=== PATIENT | male | born 1935 | race Caucasian/White ===

== ENCOUNTER → 2018-05-04 | Outpatient (CLI) | payer OTHER ==
[~2018-05-04] MED LIST: BUDE10.2 INH; BUDE90AE INH; CARV3.1212 PO; CARV3.122 PO; CARV6.2512 PO; DOXY100C15 PO; FURO-92 PO; FURO-93 PO; HYDR-3237 PO; LOSA25TA2 PO; LOSA25TA5 PO; LOSA50TA6 PO; METO25TA91 PO; POTA20TA14 PO; REGADENOSON 0.4 MG/5 ML SYRINGE ONE; RIVA20TA PO; SPIR25TA PO; SPIR25TA3 PO
== END | disposition home or self-care (01) ==
LOC: RAD 06:58
PROVIDERS: ATTEND Internal Medicine Cardiovascular Disease
DX: I25.9 Chronic ischemic heart disease, unspecified (principal); I21.19 ST elevation (STEMI) myocardial infarction involving other coronary artery of inferior wall
CPT/HCPCS: 78452; 93017; A9502; C9898; J2785

== ENCOUNTER 2018-09-01 16:15 | Observation (INO) | payer OTHER ==
[~2018-09-01] VITALS: Ht 185.4 cm; Wt 85.2 kg
[~2018-09-01 16:15] MED LIST changes: -LOSA25TA5 PO; +LOSA25TA6 PO; -LOSA50TA6 PO; +LOSA50TA7 PO; -REGADENOSON 0.4 MG/5 ML SYRINGE ONE; -SPIR25TA3 PO; +SPIR25TA5 PO
[2018-09-01 16:59] LABS: BASOPHILS # (AUTO) 0.08 x10^3/uL (0-0.1); BASOPHILS % (AUTO) 1 % (0-1); EOSINOPHILS # (AUTO) 0.24 x10^3/uL (0-0.4); EOSINOPHILS % (AUTO) 2 % (1-7); LYMPHOCYTES # (AUTO) 1.37 x10^3/uL (1-3.4); LYMPHOCYTES % (AUTO) 13 % (22-44); MD NO; MEAN CORPUSCULAR HEMOGLOBIN 32.5 pg (27.5-34.5); MEAN CORPUSCULAR HGB CONC 33.4 g/dL (33.2-36.2); MEAN CORPUSCULAR VOLUME 97.4 fL (81-97); MEAN PLATELET VOLUME 8.6 fL (7.4-10.4); MONOCYTES # (AUTO) 0.88 x10^3/uL (0.2-0.8); MONOCYTES % (AUTO) 8 % (2-9); NEUTROPHILS # (AUTO) 7.88 x10^3/uL (1.8-6.8); NEUTROPHILS % (AUTO) 75 % (42-75); PLATELET COUNT 186 x10^3/uL (130-400); RED CELL DISTRIBUTION WIDTH 13.5 % (9.4-14.8)
[2018-09-01 17:05] LABS: INTERNATIONAL NORMALIZED RATIO 1.09 (0.93-1.1); PROTHROMBIN TIME 11.2 Seconds (9.6-11.5)
[2018-09-01 17:09] LABS: ALANINE AMINOTRANSFERASE 29 U/L (12-78); ALBUMIN 4.4 g/dL (3.4-5.0); ANION GAP 8 mmol/L (5-15); CALCIUM 9.2 mg/dL (8.5-10.1); CHLORIDE 106 mmol/L (98-107)
[2018-09-01 17:13] LABS: ALKALINE PHOSPHATASE 113 U/L (45-117); TOTAL PROTEIN 8.3 g/dL (6.4-8.2); TROPONIN I 0.026 ng/mL (0.000-0.045)
[2018-09-01] MEDS ORDERED: POTASSIUM CHLORIDE (17:57)
[2018-09-01] MEDS ORDERED: FUROSEMIDE 40 MG/4 ML IV ONE (18:00)
[2018-09-01] MEDS ORDERED: FUROSEMIDE 40 MG/4 ML ONE (18:20)
[2018-09-01] MEDS ORDERED: SODIUM CHLORIDE FLUSH 10ML SYR IVF PRN (18:30)
[2018-09-01] MEDS ORDERED: POTA10CA PO (19:28)
[2018-09-01] MEDS ORDERED: APIX5TAB PO (19:28)
[2018-09-01 19:29] VITALS: BP 147/92
[2018-09-01] MEDS ORDERED: hydrALAzine 20 MG/ML, 1ML IVPush PRN (19:30)
[2018-09-01] MEDS ORDERED: ACETAMINOPHEN 325 MG TABLET PO PRN (19:30)
[2018-09-01] MEDS ORDERED: DOCUSATE 100 MG CAPSULE PO PRN (19:30)
[2018-09-01] MEDS ORDERED: ONDANSETRON ODT 4 MG PO PRN (19:30)
[2018-09-01] MEDS ORDERED: TEMAZEPAM 15 MG CAPSULE PO PRN (19:30)
[2018-09-01] MEDS ORDERED: APIXABAN 5 MG TABLET ONE (20:00)
[2018-09-01] MEDS ORDERED: APIXABAN 5 MG TABLET PO SCH ×2 (21:00)
[2018-09-01 21:32] VITALS: BP 140/81
[2018-09-01 22:30] LABS: TROPONIN I 0.029 ng/mL (0.000-0.045)
[2018-09-02 01:05] VITALS: BP 140/82
[2018-09-02 04:55] LABS: ANION GAP 7 mmol/L (5-15); CALCIUM 9.1 mg/dL (8.5-10.1); CHLORIDE 107 mmol/L (98-107); CREATININE 1.22 mg/dL (0.7-1.3)
[2018-09-02 04:59] LABS: TROPONIN I 0.026 ng/mL (0.000-0.045)
[2018-09-02 07:41] VITALS: BP 130/80
[2018-09-02] MEDS ORDERED: POTASSIUM CHLORIDE 10 MEQ TABLET.ER PO SCH (08:00)
[2018-09-02] MEDS ORDERED: RIVAROXABAN 20 MG TABLET PO SCH (09:00)
[2018-09-02] MEDS ORDERED: METOPROLOL SUCCINATE 50 MG TAB.ER.24H PO SCH (09:00)
[2018-09-02] MEDS ORDERED: FUROSEMIDE 40 MG/4 ML IV SCH (09:00)
[2018-09-02] MEDS ORDERED: POTASSIUM CHLORIDE 10 MEQ TABLET.ER PO ONE (10:30)
[2018-09-02] MEDS ORDERED: POTASSIUM CHLORIDE 10 MEQ TABLET.ER ONE (10:33)
[2018-09-02] MEDS: APIXABAN 5 MG TABLET PO SCH ×2 (10:46→20:05)
[2018-09-02] MEDS: METOPROLOL SUCCINATE 25 MG TAB.ER.24H PO SCH (10:47)
[2018-09-02] MEDS: LOSARTAN 25MG TABLET PO SCH (10:48)
[2018-09-02] MEDS ORDERED: SPIRONOLACTONE 25 MG TABLET PO ONE (13:00)
[2018-09-02] MEDS ORDERED: SPIRONOLACTONE 25 MG TABLET PO SCH (13:00)
[2018-09-02 13:14] VITALS: BP 106/66
[2018-09-02 20:00] VITALS: BP 127/76
[2018-09-02] MEDS: FUROSEMIDE 40 MG/4 ML IV SCH (20:06)
[2018-09-03 03:12] VITALS: BP 124/69
[2018-09-03 05:21] LABS: ANION GAP 9 mmol/L (5-15); CALCIUM 9.3 mg/dL (8.5-10.1); CHLORIDE 108 mmol/L (98-107); CHOLESTEROL, TOTAL 163 mg/dL (140-239); CREATININE 1.26 mg/dL (0.7-1.3); TRIGLYCERIDES 83 mg/dL (50-200); VLDL CHOLESTEROL 17 mg/dL (0-25)
[2018-09-03 05:25] LABS: CHOL/HDL RATIO 3.3; HDL CHOL % 30 % (26-37); HDL CHOLESTEROL (DIRECT) 49 mg/dL (40-60); LDL CHOLESTEROL,CALCULATED 97 mg/dL (54-169)
[2018-09-03 07:21] VITALS: BP 116/77
[2018-09-03] MEDS ORDERED: POTASSIUM CHLORIDE 20 MEQ TAB.ER.PRT PO SCH (08:00)
[2018-09-03] MEDS: FUROSEMIDE 40 MG/4 ML IV SCH (08:14)
[2018-09-03] MEDS: LOSARTAN 25MG TABLET PO SCH (08:14)
[2018-09-03] MEDS: APIXABAN 5 MG TABLET PO SCH (08:14)
[2018-09-03] MEDS: METOPROLOL SUCCINATE 25 MG TAB.ER.24H PO SCH (08:14)
[2018-09-03] MEDS ORDERED: POTA10CA PO (08:20)
[2018-09-03] MEDS ORDERED: FURO-93 PO (08:20)
[2018-09-03] MEDS ORDERED: ATOR40TA78 PO (08:20)
[2018-09-03] MEDS ORDERED: SPIRONOLACTONE 25 MG TABLET PO SCH (09:00)
[2018-09-03] MEDS ORDERED: SPIR25TA PO (09:20)
== END 2018-09-03 10:26 | disposition home or self-care (01) ==
LOC: ED 17:35 → EDIP 18:09 → INTOOBSV 18:09 → 5SO 19:06
PROVIDERS: ADMIT Hospitalist; ATTEND Hospitalist
DX: I25.118 Atherosclerotic heart disease of native coronary artery with other forms of angina pectoris (principal); N17.0 Acute kidney failure with tubular necrosis; I50.23 Acute on chronic systolic (congestive) heart failure; D68.69 Other thrombophilia; I11.0 Hypertensive heart disease with heart failure; I48.2 Chronic atrial fibrillation; E78.5 Hyperlipidemia, unspecified; Z95.0 Presence of cardiac pacemaker; Z82.49 Family history of ischemic heart disease and other diseases of the circulatory system; Z80.9 Family history of malignant neoplasm, unspecified; Z88.8 Allergy status to other drugs, medicaments and biological substances; Z79.899 Other long term (current) drug therapy; Z79.01 Long term (current) use of anticoagulants
CPT/HCPCS: 36415; 71046; 80048; 80053; 80061; 83735; 83880; 84100; 84484; 85025; 85610; 93005; 93306; 96374; 96376; 99285; G0378; J1940

== ENCOUNTER 2021-01-21 09:42 | Emergency (ER) | payer MEDICARE ==
[~2021-01-21] VITALS: Ht 185.4 cm; Wt 79.6 kg
[~2021-01-21 09:42] MED LIST changes: +APIX5TAB PO; +ATOR40TA78 PO; +LOSA25TA25 PO; -LOSA25TA6 PO; +LOSA50TA14 PO; -LOSA50TA7 PO; +POTA10CA PO; +POTASSIUM CHLORIDE
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
--- NOTE | 2021-01-21 10:20 | NUR ---
Dr Pablo has been to bedside for eval CXR at bedside
[2021-01-21 10:36] LABS: BASOPHILS % (AUTO) 1 % (0-1); EOSINOPHILS % (AUTO) 3 % (1-7); LYMPHOCYTES % (AUTO) 10 % (22-44); MD NO; MEAN CORPUSCULAR HEMOGLOBIN 34.7 pg (27.5-34.5); MEAN CORPUSCULAR HGB CONC 33.6 g/dL (33.2-36.2); MEAN PLATELET VOLUME 9.2 fL (7.4-10.4); MONOCYTES % (AUTO) 10 % (2-9); NEUTROPHILS % (AUTO) 77 % (42-75); PLATELET COUNT 128 x10^3/uL (130-400); RED BLOOD COUNT 4.19 x10^6/uL (4.38-5.82); RED CELL DISTRIBUTION WIDTH 16.7 % (9.4-14.8)
[2021-01-21 10:45] LABS: ALANINE AMINOTRANSFERASE 24 U/L (12-78); ALBUMIN 3.6 g/dL (3.4-5.0); ANION GAP 6 mmol/L (5-15); CALCIUM 9.1 mg/dL (8.5-10.1); CHLORIDE 107 mmol/L (98-107); CREATININE 1.64 mg/dL (0.7-1.3)
[2021-01-21 10:49] LABS: ALKALINE PHOSPHATASE 214 U/L (45-117); BILIRUBIN,TOTAL 2.2 mg/dL (0.2-1.0); TOTAL PROTEIN 7.4 g/dL (6.4-8.2); TROPONIN I 0.035 ng/mL (0.000-0.045)
--- NOTE | 2021-01-21 10:58 | NUR ---
report to Isaac LANDIS
[2021-01-21] MEDS ORDERED: SODIUM CHLORIDE FLUSH 10ML SYR IVF ONE (11:00)
--- NOTE | 2021-01-21 11:05 | NUR ---
REPORT FROM RAMOS LANDIS ALL TESTING RESULTS REVIEWED- PROVIDER TO BEDSIDE TO DISCUSS POC NO CHANGE IN PAIN/SOB VSS ON ORDER ENTRY
[2021-01-21 12:17] VITALS: BP 117/74
== END 2021-01-21 12:19 | disposition home or self-care (01) ==
LOC: ED 11:48
DX: I11.0 Hypertensive heart disease with heart failure (principal); I50.1 Left ventricular failure, unspecified; I50.812 Chronic right heart failure; I45.10 Unspecified right bundle-branch block; I48.91 Unspecified atrial fibrillation
CPT/HCPCS: 36415; 71045; 80053; 83880; 84484; 85025; 93005; 99285

== ENCOUNTER 2021-03-13 13:56 | Inpatient (IN) | payer MEDICARE ==
[~2021-03-13] VITALS: Ht 185.4 cm; Wt 78.7 kg
--- NOTE | 2021-03-13 14:36 | NUR ---
PATIENT WALKED BACK FROM TRIAGE WITH CHIEF C/O SOB X3-4 DAYS. PATIENT SEEN AT CARDIOLOGISTS OFFICE TODAY AND REFERRED TO ED. HAMIDA VENEGAS, CALL LIGHT WITHIN REACH.
--- NOTE | 2021-03-13 15:01 | NUR ---
PATIENT AMBULATED TO BATHROOM WITH STEADY GAIT.
--- NOTE | 2021-03-13 15:02 | NUR ---
ERMD AT BEDSIDE FOR EVALUATION.
[2021-03-13] MEDS ORDERED: FUROSEMIDE 20 MG/2 ML ONE (15:19)
[2021-03-13] MEDS ORDERED: FUROSEMIDE 40 MG/4 ML IV ONE (15:30)
[2021-03-13] MEDS ORDERED: SODIUM CHLORIDE FLUSH 10ML SYR IVF ONE (15:30)
--- NOTE | 2021-03-13 15:43 | NUR ---
22 GAUGE IV STARTED RIGHT AC, BLOOD COLLECTED AND SENT TO LAB. PATIENT MEDICATED PER eMAR. NADN, VSS, CALL LIGHT WITHIN REACH.
[2021-03-13 16:05] LABS: BASOPHILS % (AUTO) 1 % (0-1); EOSINOPHILS % (AUTO) 8 % (1-7); LYMPHOCYTES % (AUTO) 5 % (22-44); MEAN CORPUSCULAR HEMOGLOBIN 35.1 pg (27.5-34.5); MEAN CORPUSCULAR HGB CONC 33.5 g/dL (33.2-36.2); MEAN PLATELET VOLUME 8.8 fL (7.4-10.4); MONOCYTES % (AUTO) 7 % (2-9); NEUTROPHILS % (AUTO) 79 % (42-75); PLATELET COUNT 170 x10^3/uL (130-400); RED BLOOD COUNT 3.82 x10^6/uL (4.38-5.82); RED CELL DISTRIBUTION WIDTH 15.7 % (9.4-14.8)
[2021-03-13 16:06] LABS: MD NO
[2021-03-13 16:17] LABS: ALANINE AMINOTRANSFERASE 31 U/L (12-78); ALBUMIN 2.7 g/dL (3.4-5.0); ANION GAP 7 mmol/L (5-15); CHLORIDE 106 mmol/L (98-107); CREATININE 1.37 mg/dL (0.7-1.3)
[2021-03-13 16:22] LABS: ALKALINE PHOSPHATASE 219 U/L (45-117); BILIRUBIN,TOTAL 3.4 mg/dL (0.2-1.0); TOTAL PROTEIN 6.3 g/dL (6.4-8.2); TROPONIN I 0.035 ng/mL (0.000-0.045)
--- NOTE | 2021-03-13 16:48 | NUR ---
PATIENT LAYING IN THEO BROWN VSS, FAMILY MEMBER AT BEDSIDE, CALL LIGHT WITHIN REACH. PATIENT UP FOR RECHECK.
--- NOTE | 2021-03-13 17:32 | NUR ---
PATIENT O2 DROPPING TO 78%-83% RA, PLACED PATIENT ON 4 LPM NC, O2 SATURATION NOW UP TO 95%-96%. OTHER VSS, FAMILY MEMBER AT BEDSIDE.
--- NOTE | 2021-03-13 18:23 | NUR ---
PATIENT RESTING IN GURNEY WITH EYES CLOSED, RESP EVEN AND UNLABORED, VSS, SIDE RAILS UP X2, CALL LIGHT WITHIN REACH. PATIENT UP FOR RECHECK.
[2021-03-13] MEDS ORDERED: POTASSIUM CHLORIDE 20 MEQ PACKET PO ONE (18:30)
--- NOTE | 2021-03-13 18:43 | NUR ---
REPORT RECEIVED FROM PREETI LANDIS, PT CARE TRANSFERRED AT THIS TIME. PT NAD, RESTING ON GURNEY, APPEARS COMFORTABLE, VSS, BED IN LOWEST, RAILS ENGAGED, CALL LIGHT ON LAP, WCTM.
[2021-03-13] MEDS ORDERED: POTASSIUM CHLORIDE 20 MEQ PACKET ONE (18:48)
[2021-03-13] MEDS ORDERED: NITROGLYCERIN 0.4 MG BOTTLE (25 TABS) SL PRN (19:00)
[2021-03-13] MEDS ORDERED: ONDANSETRON 2MG/ML, 2ML IV PRN (19:00)
[2021-03-13] MEDS ORDERED: FURO40TA6 PO (19:00)
[2021-03-13] MEDS ORDERED: ACETAMINOPHEN 325 MG TABLET PO PRN (19:00)
--- NOTE | 2021-03-13 19:00 | NUR ---
RN DISCUSSED MEDICATIONS WITH PT, PT IS A POOR HISTORIAN REGARDING MEDICATIONS. PT NAD, DENIES ADDITIONAL NEEDS, URINAL EMPTIED, ADJUSTED ON YUAN BROWN.
--- NOTE | 2021-03-13 19:59 | NUR ---
PT RESTING ON GURNEY, NAD, APPEARS COMFORTABLE, EYES CLOSED, VSS, NO CHANGE IN CONDITION, WCTM.
--- NOTE | 2021-03-13 20:06 | NUR ---
REPORT CALLED TO DANIEL LANDIS, PT CARE TO BE TRANSFERRED UPON ARRIVAL TO FLOOR. NAD. MEI.
[2021-03-13 23:10] VITALS: BP 108/78
[2021-03-14 01:17] VITALS: BP 116/70
[2021-03-14 04:39] LABS: BASOPHILS % (AUTO) 1 % (0-1); EOSINOPHILS % (AUTO) 6 % (1-7); LYMPHOCYTES % (AUTO) 5 % (22-44); MEAN CORPUSCULAR HGB CONC 33.9 g/dL (33.2-36.2); MEAN PLATELET VOLUME 8.6 fL (7.4-10.4); MONOCYTES % (AUTO) 7 % (2-9); NEUTROPHILS % (AUTO) 81 % (42-75); PLATELET COUNT 164 x10^3/uL (130-400); RED BLOOD COUNT 3.93 x10^6/uL (4.38-5.82); RED CELL DISTRIBUTION WIDTH 15.9 % (9.4-14.8)
[2021-03-14 04:42] LABS: MD NO
[2021-03-14 04:49] LABS: ANION GAP 6 mmol/L (5-15); CALCIUM 8.8 mg/dL (8.5-10.1); CHLORIDE 106 mmol/L (98-107); CREATININE 1.44 mg/dL (0.7-1.3)
[2021-03-14 08:27] VITALS: BP 111/64
[2021-03-14] MEDS ORDERED: LOSARTAN 25MG TABLET PO SCH (09:00)
[2021-03-14] MEDS ORDERED: SPIRONOLACTONE 25 MG TABLET PO SCH (09:00)
[2021-03-14] MEDS ORDERED: FAMOTIDINE 20 MG TABLET PO SCH (09:00)
[2021-03-14] MEDS ORDERED: METOPROLOL SUCCINATE 25 MG TAB.ER.24H PO SCH (09:00)
[2021-03-14] MEDS ORDERED: FUROSEMIDE 20 MG/2 ML IVPush SCH (09:00)
[2021-03-14] MEDS ORDERED: APIXABAN 5 MG TABLET PO SCH (09:00)
[2021-03-14] MEDS ORDERED: FUROSEMIDE 40 MG/4 ML IV SCH (09:00)
[2021-03-14 14:31] VITALS: BP 118/66
[2021-03-14] MEDS ORDERED: ATORVASTATIN 40 MG TABLET PO SCH (21:00)
== END 2021-03-14 18:23 | disposition home or self-care (01) | DRG 291 ==
LOC: ED 19:08 → EDIP 20:02 → 5SO 20:17
PROVIDERS: ADMIT Family Medicine; ATTEND Family Medicine
DX: I13.0 Hypertensive heart and chronic kidney disease with heart failure and stage 1 through stage 4 chronic kidney disease, or unspecified chronic kidney disease (principal); J96.01 Acute respiratory failure with hypoxia; I50.43 Acute on chronic combined systolic (congestive) and diastolic (congestive) heart failure; D68.69 Other thrombophilia; R17 Unspecified jaundice; I42.9 Cardiomyopathy, unspecified; I48.91 Unspecified atrial fibrillation; E87.6 Hypokalemia; E03.9 Hypothyroidism, unspecified; I07.1 Rheumatic tricuspid insufficiency; I27.20 Pulmonary hypertension, unspecified; I37.1 Nonrheumatic pulmonary valve insufficiency; N18.9 Chronic kidney disease, unspecified; Z79.01 Long term (current) use of anticoagulants; Z95.0 Presence of cardiac pacemaker; Z82.49 Family history of ischemic heart disease and other diseases of the circulatory system; Z88.0 Allergy status to penicillin; Z88.8 Allergy status to other drugs, medicaments and biological substances
CPT/HCPCS: 36415; 71045; 80048; 80053; 82247; 83735; 83880; 84484; 85025; 93005; 96374; 99285; C8929; G0378; J1940; Q9957